=== PATIENT | female | born 1950 | race Two or more races ===

== ENCOUNTER 2021-10-24 14:11 | Emergency (ER) | payer MEDICARE, BC ==
[~2021-10-24 14:11] MED LIST: Iopamidol 370 76% 100 ML VIAL ONE
[2021-10-24 15:53] LABS: Clarity Clear (Clear); Specific Gravity, Urine 1.025 (1.005-1.030)
[2021-10-24 15:54] LABS: Bilirubin Negative (Negative); Blood, Urine Negative (Negative); Glucose, Urine (Dipstick) Negative (Negative); Ketone, Urine Negative (Negative); Leukocyte Trace (Negative); Nitrite Negative (Negative); Protein, Urine (Dipstick) Negative (Neg-Trace); Urobilinogen 0.2 mg/dL (Less than 2)
[2021-10-24 16:02] LABS: RBC/HPF None Seen HPF (0-3)
[2021-10-24 16:03] LABS: Bacteria/HPF Rare-Few HPF (None Seen); Squamous Epithelial 0-3 HPF (0-3); WBC/HPF 0-3 HPF (0-3)
[2021-10-24 17:35] LABS: ALT (SGPT) 22 U/L (8-55); AST (SGOT) 25 U/L (5-34); Albumin 4.1 g/dL (3.4-4.8); Alkaline Phosphatase 63 U/L (40-110); Anion Gap 17 mmol/L (10-20); BUN (Urea Nitrogen) 10 mg/dL (9.8-20.1); Bilirubin, Total 0.7 mg/dL (0.2-1.2); Calc. Creatinine Clearance 0 mL/min (70-130); Calcium 9.9 mg/dL (7.8-10.44); Carbon Dioxide 26 mmol/L (23-31); Chloride 103 mmol/L (98-107); Globulin 3.9 g/dL (2.4-3.5); Glucose 88 mg/dL (80-115); Potassium 4.4 mmol/L (3.5-5.1); Sodium 142 mmol/L (136-145)
[2021-10-24 17:48] LABS: Hemoglobin 15.3 g/dL (12.0-16.0); Mean Corpuscular HGB CONC 31.9 g/dL (32.0-36.0); Mean Corpuscular Hemoglobin 28.9 pg (27.0-31.0); Mean Corpuscular Volume 90.5 fL (78.0-98.0); Mean Platelet Volume 10.6 fL (7.4-10.4); Platelet Count 237 thou/uL (130-400); RBC Distribution Width 12.4 % (11.5-14.5); Red Blood Cell (RBC) Count 5.31 mill/uL (4.20-5.40); White Blood Cell (WBC) Count 5.7 thou/uL (4.8-10.8)
[2021-10-24 18:04] LABS: Eosinophils 4 % (0-10); Lymphocytes 31 % (21-51); MDiff Complete? YES; Monocytes 6 % (0-10); Neutrophil 43 % (42-75); Platelet Morphology Comment Appears Adequate; RBC Morphology Normal; Reactive Lymphocytes 15 % (0-10)
[2021-10-24] MEDS ORDERED: Cyclobenzaprine 10 MG TAB ONE (19:16)
== END 2021-10-24 19:23 | disposition home or self-care (01) ==
LOC: NAV ERS 14:11
DX: M54.50 Low back pain, unspecified (principal); I10 Essential (primary) hypertension; E78.5 Hyperlipidemia, unspecified; E78.00 Pure hypercholesterolemia, unspecified; Z87.442 Personal history of urinary calculi; Z79.899 Other long term (current) drug therapy
CPT/HCPCS: 74176; 74177; 80053; 81003; 81015; 85025; Q9967

== ENCOUNTER 2021-12-01 21:07 | Emergency (ER) | payer MEDICARE, BC ==
[2021-12-01] MEDS ORDERED: Cyclobenzaprine 10 MG TAB ONE (21:31)
== END 2021-12-01 21:40 | disposition home or self-care (01) ==
LOC: NAV ERS 21:07
DX: M54.41 Lumbago with sciatica, right side (principal); I10 Essential (primary) hypertension
CPT/HCPCS: 99283

== ENCOUNTER 2022-07-11 08:42 | Emergency (ER) | payer MEDICARE, BC ==
[2022-07-11] MEDS ORDERED: Ipratropium/Albuterol 3 ML NEB ONE (10:17)
== END 2022-07-11 10:53 | disposition home or self-care (01) ==
LOC: NAV ERS 08:42
DX: J06.9 Acute upper respiratory infection, unspecified (principal); J20.8 Acute bronchitis due to other specified organisms; Z20.822 Contact with and (suspected) exposure to COVID-19
CPT/HCPCS: 71046; 87804; 94640; J7620; U0003; U0005